=== PATIENT | male | born 1980 | race Asian ===

== ENCOUNTER 2020-08-13 09:15 | Outpatient (REF) | payer OTHER, SELFPAY ==
--- NOTE | 2020-08-13 09:18 | XR_ITS ---
EXAMINATION: XR CHEST CLINICAL INFORMATION: Preemployment COMPARISON: None TECHNIQUE: 2 views of the chest were obtained. FINDINGS: No significant abnormality is noted involving the heart, lungs, mediastinum, bony thorax or soft tissues. XR/XR chest 2V IMPRESSION: Unremarkable chest examination.
== END 2020-08-13 09:16 | disposition home or self-care (01) ==
LOC: HO.HMGCX 09:15
PROVIDERS: PCP Internal Medicine; Visit Provider Nurse Practitioner Family
DX: Z02.1 Encounter for pre-employment examination (principal)
CPT/HCPCS: 71046

== ENCOUNTER 2022-12-07 10:57 | Outpatient (REF) | payer OTHER, SELFPAY ==
[2022-12-07 16:17] LABS: Alanine Aminotransferase 27 U/L (0-40); Albumin Level 4.5 g/dL (3.5-5.0); Alkaline Phosphatase 58 U/L (39-117); Anion Gap 12 (12-20); Aspartate Amino Transferase 25 U/L (5-37); Bilirubin Total 2.5 mg/dL (0.0-1.0); Blood Urea Nitrogen 15 mg/dL (9-16); Calcium 9.7 mg/dL (8.4-10.2); Carbon Dioxide 28 mmol/L (22-29); Chloride 107 mmol/L (96-108); Cholesterol 231 mg/dL; Estimated Glomerular Filt Rate > 60; Glucose Fasting 82 mg/dL (60-99); HDL Cholesterol 47 mg/dL; LDL Cholesterol Calculated 161 mg/dl; Potassium 4.7 mmol/L (3.3-5.1); Sodium 142 mmol/L (135-145); Total Protein 7.5 g/dL (6.5-8.0); Triglycerides 116 mg/dL
[2022-12-07 16:35] LABS: Vitamin D 25-OH Total 20.2 ng/mL (>30)
[2022-12-10 06:34] LABS: TS Negative Control Passed; TS Panel A 28; TS Panel B 6; TS Positive Control Passed; TSpotTB Positive (Negative)
== END 2022-12-07 10:58 | disposition home or self-care (01) ==
LOC: HO.HMGCLDS 10:57
PROVIDERS: PCP Internal Medicine; Visit Provider Internal Medicine
DX: Z00.01 Encounter for general adult medical examination with abnormal findings (principal); E55.9 Vitamin D deficiency, unspecified; E78.5 Hyperlipidemia, unspecified; Z11.1 Encounter for screening for respiratory tuberculosis
CPT/HCPCS: 36415; 80053; 80061; 82306; 86481

== ENCOUNTER 2023-01-28 08:34 | Outpatient (REF) | payer OTHER, SELFPAY ==
--- NOTE | ~2023-01-28 | XR_ITS ---
EXAMINATION: XR CHEST CLINICAL INFORMATION: Nonspecific reaction to tuberculin test. COMPARISON: None available. TECHNIQUE: 2 views of the chest were obtained. FINDINGS: No significant abnormality is noted involving the heart, lungs, mediastinum, bony thorax or soft tissues. XR/XR chest 2V IMPRESSION: No acute cardiopulmonary process. No evidence for active tuberculosis.
== END 2023-01-28 08:35 | disposition home or self-care (01) ==
LOC: HO.HMGCX 08:34
PROVIDERS: PCP Internal Medicine; Visit Provider Internal Medicine
DX: R76.11 Nonspecific reaction to tuberculin skin test without active tuberculosis (principal)
CPT/HCPCS: 71046

== ENCOUNTER 2023-09-09 08:11 | Outpatient (AMB) | payer OTHER, SELFPAY ==
[2023-09-09 08:34] VITALS: BP 120/72; PULSE 76; TEMP 36.4; O2SAT 96; BMI 30.7
--- NOTE | 2023-09-09 08:34 | MHC.OFFWIV ---
Intake Vital Signs 09/09/23 08:34 Height 5 ft 7 in Weight 196 lb BMI 30.7 BP 120/72 Blood Pressure Location Lt brachial Position Sitting Pulse 76 Pulse Source Pulse Oximeter Temp 97.5 F Temp Source Temporal Artery Scan Pulse Oximetry (%) 96 Oxygen Delivery Method Room Air Intake Visit Reasons: EST/sharp pain in side(lobby) Intake Note: pt is here today for sharp pain on lft side started today Patient Tobacco Use Status: Former Tobacco user Quit Date: 2013 Allergies No Known Allergies Allergy (Verified 09/09/23 08:54) Medication List - Last Reconciled 09/09/23 by Raleigh Campos MD No Known Home Meds Do you need a note to return to daycare/school/sports/work: Yes HPI EST/sharp pain in side(lobby) HPI Details 43-year-old male presents to the office for a sick visit. Patient experienced sharp abdominal pain this morning that lasted for 3 minutes. He has not experienced these symptoms before. The pain was in the left lower quadrant any believe it to be due to is appendix. No nausea or vomiting. No difficulty urinating. No fevers or chills. 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 Cognitive needs: No Hearing needs: No Vision needs: No Physical Exam Vital Signs: Last Vital Signs Temp 97.5 F 09/09/23 08:34 Pulse 76 09/09/23 08:34 BP 120/72 09/09/23 08:34 Pulse Ox 96 09/09/23 08:34 Oxygen Delivery Method Room Air 09/09/23 08:34 BMI result Body Mass Index 30.7 Const General: cooperative and healthy appearing Nutritional Appearance: well nourished Orientation/consciousness: patient oriented x3 Limitations: no limitations HEENT Head: Yes normal to inspection Eyes General: appearance normal, both eyes and all related structures Neck Neck: Yes normal visual inspection Chest Chest palpation & inspection: normal palpation of entire chest wall Resp Effort & Inspection: normal respiratory effort GI Other: Abdomen: Benign exam. Bowel sounds well heard in all quadrants. No area of tenderness or discomfort. No organomegaly. Neuro General: patient oriented x3 Assessment & Plan Assessment & Plan (1) Abdominal pain: Code(s): R10.9 - Unspecified abdominal pain Plan: Normal clinical exam. Urinalysis did not show any evidence of blood. Patient was reassured. If symptoms recur I advised him to follow-up here. Coding Level of Care Code Est Pt Level 4 (81898) Diagnoses Abdominal pain R10.9
== END 2023-09-09 09:12 | disposition home or self-care (01) ==
PROVIDERS: PCP Internal Medicine; Visit Provider Internal Medicine
DX: R10.9 Unspecified abdominal pain (principal); Z13.9 Encounter for screening, unspecified
CPT/HCPCS: 81003; 99214

== ENCOUNTER 2024-07-09 10:56 | Outpatient (AMB) | payer OTHER, SELFPAY ==
[2024-07-09 11:21] VITALS: BP 122/84; PULSE 86; O2SAT 94; BMI 31.2
--- NOTE | 2024-07-09 11:21 | MHC.OFFWIV ---
Intake Vital Signs 07/09/24 11:21 Height 5 ft 7 in Weight 199 lb BMI 31.2 BP 122/84 Blood Pressure Location Rt brachial Position Sitting Pulse 86 Pulse Source Pulse Oximeter Pulse Oximetry (%) 94 Oxygen Delivery Method Room Air Intake Visit Reasons: EP Lt ear pain Intake Note: Patient here for left ear pain that has been present for about 2 weeks. Patient Tobacco Use Status: Former Tobacco user Allergies No Known Allergies Allergy (Verified 07/09/24 11:22) Do you need a note to return to daycare/school/sports/work: No HPI EP Lt ear pain HPI Details This note is constructed using voice recognition software. While every effort has been made to ensure accuracy, director of search engine optimization errors may have been included. The patient is a 44 year old male who presents to the clinic today with left ear pain for the past 2 weeks. He denies fevers, chills, cough, sob. He notes he has had ear infection in the past with perforation, but no other problems with the ear. He reports the pain is more of a pressure. 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 [employer] [id number] Cognitive needs: No Hearing needs: No Vision needs: No Review of Systems Const All systems reviewed & are unremarkable except as noted in HPI and below Physical Exam Vital Signs: Last Vital Signs Pulse 86 07/09/24 11:21 BP 122/84 07/09/24 11:21 Pulse Ox 94 07/09/24 11:21 Oxygen Delivery Method Room Air 07/09/24 11:21 BMI result Body Mass Index 31.2 Const General: cooperative, healthy appearing, comfortable and no acute distress Orientation/consciousness: patient oriented x3 HEENT Head: Yes normal to inspection, Yes No palpable skull fracture present and Yes normocephalic Ears: hearing grossly normal bilaterally, external ears normal, EAC's normal, mastoids normal (no TTP) bilaterally and TM abnormal bulging, erythematous and with fluid behind the TM on the left General nose exam: Normal external nose present Face and sinus: Yes normal facial exam Mouth: Normal oral and palatal mucosa present Teeth and gingiva: dentition normal Throat: Yes posterior oropharynx normal Eyes General: appearance normal, both eyes and all related structures Neck Neck: Yes normal visual inspection, Yes full ROM, Yes no lymphadenopathy, Yes no meningeal signs, Yes trachea midline and Yes supple Resp Effort & Inspection: normal respiratory effort and able to speak in complete sentences Skin General skin exam: no rashes or lesions noted Neuro General: patient oriented x3 and no meningeal signs Assessment & Plan Assessment & Plan (1) Otitis media, left: Code(s): H66.92 - Otitis media, unspecified, left ear Qualifiers: Otitis media type: suppurative Chronicity: acute Recurrence: non-recurrent Spontaneous tympanic membrane rupture: without spontaneous rupture Qualified Code(s): H66.002 - Acute suppurative otitis media without spontaneous rupture of ear drum, left ear Plan: Supportive measures encouraged and reviewed. Antibiotic sent to requested pharmacy, advised patient to take antibiotics until completed and not to stop if feeling better, unless the patient has side effects. Advised patient to follow up with primary care provider with worsening or failure to resolve. Plan See above for full details and plan. Medications: New amoxicillin-pot clavulanate 875-125 mg 1 tab PO BID 7 days 14 tabs 0RF Coding Level of Care Code Est Pt Level 3 (84136) Diagnoses Non-recurrent acute suppurative otitis media of left ear without spontaneous rupture of tympanic membrane H66.002 Otitis media type: suppurative Chronicity: acute Recurrence: non-recurrent Spontaneous tympanic membrane rupture: without spontaneous rupture
== END 2024-07-09 12:10 | disposition home or self-care (01) ==
PROVIDERS: PCP Internal Medicine; Visit Provider Registered Nurse
DX: H66.002 Acute suppurative otitis media without spontaneous rupture of ear drum, left ear (principal)

== ENCOUNTER → 2024-07-09 10:56 | Outpatient (BNVA) | payer OTHER, SELFPAY | PROVIDERS: PCP Internal Medicine; Visit Provider Registered Nurse | DX: H66.002 Acute suppurative otitis media without spontaneous rupture of ear drum, left ear (principal) | CPT/HCPCS: 99212 ==

== ENCOUNTER 2024-08-13 08:03 | Outpatient (AMB) | payer SELFPAY ==
[2024-08-13 08:15] VITALS: BP 120/88; PULSE 68; TEMP 36.6; O2SAT 95; BMI 31.4
--- NOTE | 2024-08-13 08:15 | AM.OFFWIN_ITS ---
Intake Vital Signs 08/13/24 08:15 Height 5 ft 7 in Weight 200 lb 3 oz BMI 31.4 BP 120/88 Blood Pressure Location Lt brachial Position Sitting Pulse 68 Pulse Source Pulse Oximeter Temp 97.8 F Temp Source Oral Pulse Oximetry (%) 95 Oxygen Delivery Method Room Air Intake Visit Reasons: EP ? ear infection Intake Note: Patient here for left ear pain. he states he recently had an ear infection a few weeks ago and was put on antibiotics and was feeling better but about 4 days ago he started to have hilaria again. Patient Tobacco Use Status: Former Tobacco user Allergies No Known Allergies Allergy (Verified 08/13/24 08:22) Do you need a note to return to daycare/school/sports/work: No HPI EP ? ear infection HPI Details This note is constructed using voice recognition software. While every effort has been made to ensure accuracy, lock installer errors may have been inc luded. The patient is a 44 year old male who presents to the clinic today with concern for ear infection. He was last seen in clinic 07/09/2024 for left-sided otitis media at which time he was treated with Augmentin. He reports several ear infections over the past many years, and in the past had some sort of a surgery to his ears. He denies fever, chills, cough, shortness of breath, or other URI symptoms. He reports after previous treatment, his ear felt good for approximately 2 weeks when he started feeling more pressure in the left ear, with some muffled hearing. 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 Cognitive needs: No Hearing needs: No Vision needs: No Review of Systems Const All systems reviewed & are unremarkable except as noted in HPI and below Physical Exam Vital Signs: Last Vital Signs Temp 97.8 F 08/13/24 08:15 Pulse 68 08/13/24 08:15 BP 120/88 08/13/24 08:15 Pulse Ox 95 08/13/24 08:15 Oxygen Delivery Method Room Air 08/13/24 08:15 BMI result Body Mass Index 31.4 Const General: cooperative, healthy appearing, comfortable and no acute distress Orientation/consciousness: patient oriented x3 HEENT Head: Yes normal to inspection, Yes No palpable skull fracture present and Yes normocephalic Ears: hearing grossly normal bilaterally, external ears normal, EAC's normal, mastoids normal (no TTP) bilaterally and TM abnormal scarred on the left General nose exam: Normal external nose present Face and sinus: Yes normal facial exam Mouth: Normal oral and palatal mucosa present Teeth and gingiva: dentition normal Throat: Yes posterior oropharynx normal Eyes General: appearance normal, both eyes and all related structures Neck Neck: Yes normal visual inspection, Yes full ROM, Yes no lymphadenopathy, Yes no meningeal signs, Yes trachea midline and Yes supple Resp Effort & Inspection: normal respiratory effort and able to speak in complete sentences Skin General skin exam: no rashes or lesions noted Neuro General: patient oriented x3 and no meningeal signs Assessment & Plan Assessment & Plan (1) Fullness in left ear: Code(s): H93.8X2 - Other specified disorders of left ear Plan: No clear etiology, advised patient to try a NSAIDs for pain, may also try Flonase nasal spray if this may help with decreasing the pressure in terms of improving drainage. Advised patient to follow up with previous ENT, likely will require referral. Message to primary care to facilitate treatment plan. Plan See above for full details and plan. Coding Level of Care Code Est Pt Level 3 (35937) Diagnoses Fullness in left ear H93.8X2
== END 2024-08-13 08:41 | disposition home or self-care (01) ==
PROVIDERS: PCP Internal Medicine; Visit Provider Registered Nurse
DX: H93.8X2 Other specified disorders of left ear (principal)

== ENCOUNTER → 2024-08-13 08:03 | Outpatient (BNVA) | payer OTHER, SELFPAY | PROVIDERS: PCP Internal Medicine; Visit Provider Registered Nurse | DX: H93.8X2 Other specified disorders of left ear (principal) | CPT/HCPCS: 99212 ==